=== PATIENT | female | born 1970 | race Caucasian/White ===

== ENCOUNTER 2019-08-31 16:59 | Emergency (ER) | payer MEDICAID, OTHER, SELFPAY ==
[~2019-08-31] VITALS: Ht 162.6 cm; Wt 65.7 kg
--- NOTE | 2019-08-31 17:29 | NUR ---
Pt states hit Rt arm into a door while walking, States Rt FA pain now. Pt given ice for injury. Pt to imaging. Will follow orders.
--- NOTE | 2019-08-31 18:34 | NUR ---
Pt ok for D/C per ERMD. Splint placed on pt per orders. Pt verbalized understanding of D/C orders. Has all own belongings upon D/C, steady gait.
[2019-08-31 18:35] VITALS: BP 137/67
== END 2019-08-31 18:37 | disposition home or self-care (01) ==
LOC: ED 18:10
DX: S50.11XA Contusion of right forearm, initial encounter (principal); W23.0XXA Caught, crushed, jammed, or pinched between moving objects, initial encounter; Y93.89 Activity, other specified; Y92.89 Other specified places as the place of occurrence of the external cause; Y99.8 Other external cause status
CPT/HCPCS: 29105; 99283

== ENCOUNTER 2020-01-15 00:46 | Emergency (ER) | payer MEDICAID ==
[~2020-01-15] VITALS: Ht 162.6 cm; Wt 59.9 kg
[2020-01-15 01:00] VITALS: BP 122/75
--- NOTE | 2020-01-15 01:40 | NUR ---
PT TO ROOM AMBULATE WITH STEADY GAIT, NAD, PT REPORTS THAT SHE WAS HELPING A FRIEND MOVE YESTERDAY AND NOT SURE OF SOMETHING HAPPENED THEN. l HAND RED, SWOLLEN, WARM, REPORTS LAST DT WITHIN 5 YEARS, TAKES NO MEDICATION OTHER THAN OTC VITAMINS AND DENIES MEDICAL HISTORY
[2020-01-15] MEDS ORDERED: KETOROLAC 30 MG/1 ML IM ONE (02:00)
[2020-01-15] MEDS ORDERED: KETOROLAC 30 MG/1 ML ONE (02:30)
--- NOTE | 2020-01-15 02:40 | NUR ---
Pt medicated per JUL. Pt given warm blanket. NAD.
--- NOTE | 2020-01-15 03:01 | NUR ---
Pt d/c'd to home care. Pt alert, oriented and in NAD. Pt educated on RX, home care, OTC's and follow-up. Pt ambulated out of ER.
== END 2020-01-15 03:04 | disposition home or self-care (01) ==
LOC: ED 02:43
DX: L03.114 Cellulitis of left upper limb (principal); M25.532 Pain in left wrist
CPT/HCPCS: 73110; 96372; 99283; J1885